=== PATIENT | female | born 1965 | race Caucasian/White ===

== ENCOUNTER 2018-08-11 14:32 | Emergency (ER) | payer OTHER ==
[~2018-08-11] VITALS: Ht 175.3 cm; Wt 113.4 kg
[2018-08-11] MEDS ORDERED: POTASSIUM20 PO (14:44)
[2018-08-11] MEDS ORDERED: COZAAR 25 MG TA25 M1 PO (14:44)
[2018-08-11] MEDS ORDERED: BRILINTA60 MG PO (14:44)
[2018-08-11] MEDS ORDERED: SYNTHROID88 MCG PO (14:44)
[2018-08-11] MEDS ORDERED: COZAAR 25 MG TA25 MG PO (14:44)
[2018-08-11] MEDS ORDERED: COREG6.25 MG PO (14:44)
[2018-08-11] MEDS ORDERED: NEURONTIN 300300 M1 PO (14:45)
[2018-08-11] MEDS ORDERED: CYMBALTA20 MG PO (14:45)
[2018-08-11 15:15] LABS: ABSOLUTE BASOPHILS 0.1 thou/uL (0.0-0.2); ABSOLUTE EOSINOPHILS 0.2 thou/uL (0.0-0.7); ABSOLUTE MONOCYTES 0.4 thou/uL (0.0-1.2); ABSOLUTE NEUTROPHILS 6.1 thou/uL (1.6-8.1); BASOPHILS 1.1 %; EOSINOPHILS 2.7 %; HEMATOCRIT 36.9 % (37.0-47.0); HEMOGLOBIN 12.3 gm/dL (12.0-15.0); LYMPHOCYTES 13.1 %; MCH 28.2 pg (26.0-34.0); MCHC 33.4 g/dL (28.0-37.0); MCV 84.4 fL (80.0-100.0); MONOCYTES 4.7 %; MPV 8.6 fl. (7.2-11.1); NUCLEATED RBCS 0 /100WBC; PLATELET COUNT* 277 thou/uL (150-400); POLYS 78.4 %; RBC 4.37 mil/uL (4.20-5.00); RDW-CV 13.8 % (10.5-14.5); WBC 7.8 thou/uL (4.0-11.0)
[2018-08-11 15:22] LABS: ANION GAP 11 mmol/L (7-16); BUN 15 mg/dL (7-18); CALCIUM 8.6 mg/dL (8.5-10.1); CHLORIDE 99 mmol/L (98-107); CO2 24 mmol/L (21-32); POTASSIUM 4.5 mmol/L (3.5-5.1); SODIUM 134 mmol/L (136-145)
[2018-08-11 15:23] LABS: APTT 28.5 Seconds (25.0-31.3); INR 0.9; PROTIME 9.6 Seconds (9.20-11.50)
[2018-08-11 15:32] LABS: ALKALINE PHOSPHATASE 84 U/L (46-116); CK-MB MASS 1.9 ng/mL (<0.5-3.6); LIPASE 167 U/L (73-393); MAGNESIUM 1.8 mg/dL (1.8-2.4); NT-PRO BRAIN NAT PEPTIDE 368 pg/mL (<300); SGOT 14 U/L (15-37); SGPT 20 U/L (30-65); TOTAL BILIRUBIN 0.5 mg/dL (<0.1-1.0); TROPONIN-I LEVEL <0.06 ng/mL (<0.06)
[2018-08-11 15:35] LABS: GLUCOSE 507 mg/dL (70-99)
[2018-08-11] MEDS ORDERED: PERCOCET 5-3251 EACH PO (16:12)
[2018-08-11] MEDS ORDERED: KEFLEX500 M1 PO (16:12)
[2018-08-11 16:27] VITALS: BP 131/57
--- NOTE | 2018-08-12 10:47 | EKG ---
[place] [address] ELECTROCARDIOGRAM REPORT Name: CHEPE SOSA Room: [facility]#: [id number] Admission: 08/11/18 Attend Phys: Discharge: 08/11/18 Date of : 63 Report #: [id number] THIS REPORT FOR: //name// [facility] ED Test Date: 2018-08-11 Test Time: 14:36:54 Pat Name: CHEPE SOSA Department: Room: Gender: F [employer]: Yanni ZHANG : 1965 Requested By: Yosi Hitchcock Order Number: [id number] MD: Jose Juan Buenrostro Measurements Intervals [place] Rate: 83 P: 69 ND: 173 QRS: 66 QRSD: 117 T: 81 QT: 393 QTc: 462 Interpretive Statements Sinus rhythm Probable left atrial enlargement Nonspecific intraventricular conduction delay Borderline low voltage, extremity leads Nonspecific T abnormalities, lateral leads Compared to ECG 11/05/2006 00:02:04 Intraventricular conduction delay now present T-wave abnormality now present Electronically Signed On 08-12-2018 10:46:55 CDT by Jose Juan Buenrostro [email or web address] <ELECTRONICALLY SIGNED> By: Jose Juan Buenrostro MD, [facility] 08/12/18 1046 [id number] Jose Juan Buenrostro MD, [facility] /EPI
== END 2018-08-11 18:20 | disposition home or self-care (01) ==
LOC: M.ERS 14:32
PROVIDERS: Family Medicine
DX: S90.32XA Contusion of left foot, initial encounter (principal); R07.89 Other chest pain; M79.7 Fibromyalgia; E11.9 Type 2 diabetes mellitus without complications; I50.9 Heart failure, unspecified; Z88.1 Allergy status to other antibiotic agents; Z95.5 Presence of coronary angioplasty implant and graft; Z88.0 Allergy status to penicillin; Z88.2 Allergy status to sulfonamides; Z88.5 Allergy status to narcotic agent